=== PATIENT | male | born 1945 | race Caucasian/White ===

== ENCOUNTER → 2017-07-11 | Outpatient (CLI) | payer OTHER ==
[2014-02-07 09:51] VITALS: BP 108/58
--- NOTE | 2017-07-11 14:28 | RAD ---
Indication: Back pain Exam: Lumbar spine series Technique: A five view cervical spine series was obtained. Findings: The lumbar vertebra are well aligned. There is moderate disc space narrowing throughout whi ch most prominent L5-S1 with prominent marginal osteophytes throughout. No fracture or subluxation is seen. There are moderate sclerotic changes of facets throughout the lower lumbar spine with no pars defects. Impression: Moderately severe multilevel degenerative disc disease which is most prominent L5-S1 with no acute ab normality seen Moderate osteoarthritic changes of the facets throughout the lower lumbar spine with no pars defects. Reported By:
== END ==
LOC: RAD 11:06
PROVIDERS: ATTEND Internal Medicine
DX: M54.5 Low back pain (principal); M51.37 Other intervertebral disc degeneration, lumbosacral region
CPT/HCPCS: 72110

== ENCOUNTER → 2017-07-15 | Outpatient (CLI) | payer OTHER ==
[2014-02-07 09:51] VITALS: BP 108/58
--- NOTE | 2017-07-15 12:08 | MRI ---
STUDY: MRI OF THE LUMBAR SPINE HISTORY: Low back pain. Comparison: None. Technique: Multiplanar multi-sequence MRI of the lumbar spine was performed. Sagittal T1, sagittal T 2, and STIR images, axial T1, and axial T2 images were obtained. Findings: Sagittal images: There is mild anterior wedging of the T12 vertebral body. There is multilevel degene rative disc disease and degenerative endplate change. There is bony ankylosis versus fusion at L5/S1. There is degenerative endplate change identified, with Modic type 1 change at the opposing endplates of T12/L1. The conus medullaris is normal in appearance terminating at the level of L1/2. Axial images: T12 -- L1: There is a shallow disc bulge, bilateral facet arthropathy and ligamentum flavum infolding . The central canal and neural foramina are adequate. L1 -- L2: There is a broad-based disc bulge, bilateral facet arthropathy and ligamentum flavum infold ing. This results in mild central canal stenosis. There is mild right and moderate left neural forami nal stenosis. L2 -- L3: There is a broad-based disc bulge, bilateral facet arthropathy and ligamentum flavum infold ing. This results in moderate central canal stenosis. The right neural foramen is adequate. There is moderate left neural foraminal stenosis. L3 -- L4: There is a broad-based disc bulge, bilateral facet arthropathy and ligamentum flavum infold ing. This results in moderate to severe spinal stenosis. The neural foramina are adequate. L4 -- L5: There is a broad-based disc bulge, bilateral facet arthropathy and ligamentum flavum infold ing. The combination of these findings results in severe spinal stenosis. There is mild bilateral tawanna ral foraminal stenosis. L5 -- S1: There is fusion versus bony ankylosis at this level. The central canal and right neural for amen are adequate. There is mild left neural foraminal stenosis. IMPRESSION: 1. Multilevel lumbar spondylosis, with fusion versus ankylosis at L5/S1. 2. Severe spinal stenosis at L4/5. 3. Moderate to severe spinal stenosis at L3/4. Moderate spinal stenosis at L2/3. 4. Multilevel neural foraminal stenosis. Please see above for detail. Reported By:
== END | disposition home or self-care (01) | DRG 552 ==
LOC: RAD 09:59
PROVIDERS: ATTEND Internal Medicine
DX: M54.5 Low back pain (principal); M47.897 Other spondylosis, lumbosacral region; M48.061 Spinal stenosis, lumbar region without neurogenic claudication
CPT/HCPCS: 72148